=== PATIENT | female | born 1950 | race American Indian/Alaskan Native ===

== ENCOUNTER 2022-03-10 13:45 | Emergency (ER) | payer SELFPAY ==
--- NOTE | 2022-03-11 10:30 | Emergency Department Report ---
ED General Adult HPI - General Chief complaint: Dizziness Stated complaint: FALL/DIZZINESS Time Seen by Provider: 03/11/22 10:10 Source: family Mode of arrival: Ambulatory Limitations: Language Barrier - History of Present Illness Initial comments: 71-year-old who reports has been dizzy slipped and fell yesterday onto her head and her back. Patient had questionable loss of consciousness but has been awake and alert and having no symptoms since then. Still having mild headache. No fever or chills or cough -: Gradual Location: head, back Severity scale (0 -10): 6 Quality: aching Consistency: intermittent Improves with: none Associated Symptoms: denies other symptoms Treatments Prior to Arrival: none - Related Data Previous Rx's Medication Instructions Recorded Last Taken Type lisinopriL [Zestril TAB] 40 mg PO QDAY #60 03/11/22 Unknown Rx metFORMIN [Glucophage] 500 mg PO BID #60 03/11/22 Unknown Rx Allergies Allergy/AdvReac Type Severity Reaction Status Date / Time No Known Allergies Allergy Unverified 03/10/22 15:12 ED Review of Systems ROS: Stated complaint: FALL/DIZZINESS Other details as noted in HPI ED Past Medical Hx - Past Medical History Previous Medical History?: Yes Hx Diabetes: Yes - Surgical History Past Surgical History?: No - Medications Home Medications: Home Medications Medication Instructions Recorded Confirmed Last Taken Type lisinopriL [Zestril TAB] 40 mg PO QDAY #60 03/11/22 Unknown Rx metFORMIN [Glucophage] 500 mg PO BID #60 03/11/22 Unknown Rx ED Physical Exam - General Limitations: Language Barrier General appearance: alert - Head Head exam: Present: atraumatic - Eye Eye exam: Present: normal appearance, PERRL Pupils: Present: normal accommodation - ENT ENT exam: Present: normal exam - Neck Neck exam: Present: normal inspection ED Course Vital Signs 03/10/22 03/11/22 15:23 06:36 Temperature 98.6 F 98.0 F Pulse Rate 88 71 Respiratory 20 18 Rate Blood Pressure 163/79 161/72 [Right] O2 Sat by Pulse 100 98 Oximetry Critical care attestation.: If time is entered above; I have spent that time in minutes in the direct care of this critically ill patient, excluding procedure time. ED Disposition Clinical Impression: Back contusion, Head injury Disposition: HOME / SELF CARE / HOMELESS Is pt being admited?: No Does the pt Need Aspirin: No Condition: Stable Instructions: Contusion, [id number], Back Injury Prevention, Blunt Chest Trauma Prescriptions: metFORMIN [Glucophage] 500 mg PO BID #60 lisinopriL [Zestril TAB] 40 mg PO QDAY #60 Referrals: PRIMARY CARE, [Primary Care Provider] - 3-5 Days
--- NOTE | 2022-03-11 10:43 | XRay Report ---
CHEST 1 VIEW 03/11/2022 9:37 AM INDICATION / CLINICAL INFORMATION: sob. COMPARISON: None. FINDINGS: SUPPORT DEVICES: None. HEART / MEDIASTINUM: Normal. LUNGS / PLEURA: No acute pulmonary or pleural findings. No pneumothorax. ADDITIONAL FINDINGS: No significant additional findings. IMPRESSION: 1. No acute findings. Signer Name: Brodie Ellis MD Signed: 03/11/2022 10:39 AM Workstation Name: [email or web address]
--- NOTE | 2022-03-11 10:47 | XRay Report ---
PELVIS 1 VIEW(S) INDICATION / CLINICAL INFORMATION: fall COMPARISON: None available. FINDINGS: BONES / JOINT(S): No acute fracture or subluxation. No significant arthritis. SOFT TISSUES: No significant abnormality. ADDITIONAL FINDINGS: Soft tissue calcifications. Severe lumbar spondylosis. IMPRESSION: 1. No acute findings. Signer Name: Luke Najera MD Signed: 03/11/2022 10:43 AM [facility]station [id number]
--- NOTE | 2022-03-11 11:15 | Cat Scan Report ---
CT head/brain wo con INDICATION: de la cruz. TECHNIQUE: CT head. All CT scans at this location are performed using CT dose reduction for ALARA by means of automated exposure control. COMPARISON: None. FINDINGS: Intracranial: Whitting[place]-white matter differentiation is maintained. No intracranial hemorrhage. No extra a xial collection. No hydrocephalus. No herniation. Matter hypoattenuation most consistent with severe sequela of chronic microvessel disease. Sinuses: Paranasal sinuses and mastoid air cells are essentially clear. Orbits: Globes are intact. Calvarium: No acute fracture. IMPRESSION: 1. No acute intracranial abnormality. 2. Severe sequela of chronic microvascular disease. Signer Name: Suraj Quinones MD Signed: 03/11/2022 11:11 AM Workstation Name: [id number]
[2022-03-11 13:32] VITALS: BP 163/71
== END 2022-03-11 13:32 | disposition home or self-care (01) ==
LOC: ED 13:45
DX: S20.229A Contusion of unspecified back wall of thorax, initial encounter (principal); S09.90XA Unspecified injury of head, initial encounter; E11.9 Type 2 diabetes mellitus without complications; W19.XXXA Unspecified fall, initial encounter; Y93.89 Activity, other specified; Y92.89 Other specified places as the place of occurrence of the external cause; Y99.8 Other external cause status
CPT/HCPCS: 70450; 71045; 72170; 82962; 99284